=== PATIENT | female | born 1990 | race Two or more races ===

== ENCOUNTER 2017-06-05 21:12 | Emergency (ER) | payer OTHER ==
[~2017-06-05] VITALS: Ht 172.7 cm; Wt 71.2 kg
--- NOTE | 2017-06-05 22:40 | NUR ---
tech at bedside for wound care.
[2017-06-05] MEDS ORDERED: ACETAMINOPHEN ES 500 MG TABLET ONE (22:46)
--- NOTE | 2017-06-05 22:53 | NUR ---
tylenol 1g given po per dr neal verbal order.
--- NOTE | 2017-06-05 23:00 | NUR ---
pt states no chance of being . willing to sign waiver. radiology made aware.
--- NOTE | 2017-06-05 23:05 | NUR ---
radiology at bedside for lt wrist xray.
--- NOTE | 2017-06-06 01:11 | NUR ---
Patient discharged to home in stable condition. Written and verbal after care instructions given. Patient verbalizes understanding of instruction. Patient is ambulatory with steady gait, accompanied by family going home. No further complaints.
[2017-06-06 01:12] VITALS: BP 120/74
== END 2017-06-06 01:13 | disposition home or self-care (01) ==
LOC: ER 21:13
DX: S39.012A Strain of muscle, fascia and tendon of lower back, initial encounter (principal); Z88.0 Allergy status to penicillin; S60.212A Contusion of left wrist, initial encounter; V43.52XA Car driver injured in collision with other type car in traffic accident, initial encounter; Y93.89 Activity, other specified; Y92.488 Other paved roadways as the place of occurrence of the external cause; Y99.8 Other external cause status
CPT/HCPCS: 73110; 99284; A4606; A6403; Z7610